=== PATIENT | female | born 1995 | race Caucasian/White ===

== ENCOUNTER 2018-10-18 21:57 | Emergency (ER) | payer BC, OTHER ==
[~2018-10-18] VITALS: Ht 162.6 cm; Wt 64.0 kg
[~2018-10-18 21:57] MED LIST: HYDR1TAB13 PO
[2018-10-18] MEDS ORDERED: HYDROcodone/APAP 5/325 TABLET ONE (22:26)
[2018-10-18] MEDS ORDERED: IBUPROFEN 200 MG TABLET ONE (22:26)
--- NOTE | 2018-10-18 22:29 | NUR ---
PT MEDICATED FOR PAIN
[2018-10-18] MEDS ORDERED: IBUPROFEN 600 MG TABLET PO ONE (22:30)
[2018-10-18] MEDS ORDERED: HYDROcodone/APAP 5/325 TABLET PO ONE (22:30)
[2018-10-18 23:45] VITALS: BP 114/71
--- NOTE | 2018-10-18 23:45 | NUR ---
Patient given discharge instructions and they have confirmed that they understand the instructions. Patient ambulatory with steady gait on crutches.
== END 2018-10-18 23:47 | disposition home or self-care (01) ==
LOC: ED 23:31
DX: S93.402A Sprain of unspecified ligament of left ankle, initial encounter (principal); X50.1XXA Overexertion from prolonged static or awkward postures, initial encounter; Y93.02 Activity, running; Y92.322 Soccer field as the place of occurrence of the external cause; Y99.8 Other external cause status
CPT/HCPCS: 29515; 99283

== ENCOUNTER 2019-10-29 19:41 | Emergency (ER) | payer BC ==
[~2019-10-29] VITALS: Ht 162.6 cm; Wt 72.0 kg
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
--- NOTE | 2019-10-29 21:47 | NUR ---
[facility] AT BEDSIDE AT THIS TIME.
--- NOTE | 2019-10-29 21:53 | NUR ---
REPORT TO CRISTOPHER SAVAGE WHO ASSUMED CARE OF PT.
[2019-10-29 22:18] VITALS: BP 125/77
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
== END 2019-10-29 22:21 | disposition home or self-care (01) ==
LOC: ED 21:58
DX: T74.21XA Adult sexual abuse, confirmed, initial encounter (principal)
CPT/HCPCS: 99283